=== PATIENT | female | born 1965 | race Caucasian/White ===

== ENCOUNTER → 2016-08-08 | Outpatient (CLI) | payer MEDICARE, MEDICAID ==
[~2016-08-08] MED LIST: ALBU1.25 NEB; ALBUAER3 INH; CHRO200T4 PO; CYCL1TAB29 PO; DEXI60CA PO; EFFE25TA PO; ESTE500T4 PO; FEXO1TAB97 PO; FLUT50SP EACH NARE; FURO20TA PO; KETO0.02 EACH EYE; LACT PO; LACTCAP8 PO; LANS15CA PO; LISI-519 PO; M2 M100C PO; MAGN100T2 PO; META0.52 PO; METH10TA PO; MILL5TAB PO; MISC-163; MONT10TA2 PO; MULTTAB67 PO; OMEG1000 PO; OXYC-395 PO; OYST250T4 PO; PAXI25TA5 PO; POTA8CAP PO; PROG100C PO; PROM25TA5 PO; SENN1TAB PO; SPIRCAP INH; TRAZ50TA12 PO; WALKER WHEELS/F1 MIS; XARE10TA PO
== END ==
LOC: CPRE 12:15
PROVIDERS: ATTEND Pain Medicine Interventional Pain Medicine
DX: Z45.49 Encounter for adjustment and management of other implanted nervous system device (principal)

== ENCOUNTER → 2016-08-15 | Day surgery (SDC) | payer MEDICARE, MEDICAID ==
[~2016-08-15] VITALS: Ht 158.8 cm; Wt 61.5 kg
[~2016-08-15] MED LIST changes: +BUPIVACAINE/EPINEPHRINE 0.5% PF 30 ML VIAL ONE; -CYCL1TAB29 PO; -EFFE25TA PO; +FAMOTIDINE 20 MG/2 ML VIAL ONE; -LACT PO; -LISI-519 PO; -META0.52 PO; +MIDAZOLAM HCL 2 MG/2 ML VIAL ONE; +PROPOFOL 200 MG/20 ML AMP IV ONE; -SENN1TAB PO; +SODIUM CHLOR 0.9% 250 ML INJ 250 ML ONE; +SODIUM CHLORIDE 0.9% INJ 100 ML ONE; +VANCOMYCIN 500 MG VIAL ONE; -XARE10TA PO
[2016-08-15 11:46] VITALS: BP 112/70; PULSE 90; RESP 16; TEMP 98.3; O2SAT 98
[2016-08-15 14:30] VITALS: PULSE 93
[2016-08-15 15:30] VITALS: TEMP 98
[2016-08-15 15:50] VITALS: BP 117/76; PULSE 84; RESP 14; O2SAT 98
--- NOTE | 2016-08-19 10:59 | MP ---
cc: [facility] DATE OF SURGERY 08/15/2016 DATE OF 1965 PROCEDURE 1. Removal of implanted pulse generator for spinal cord stimulation. 2. Removal of implanted electrodes for spinal cord stimulation. PREPROCEDURE DIAGNOSIS Diagnostic procedure requires removal of spinal cord stimulator. POSTPROCEDURE DIAGNOSIS Diagnostic procedure requires removal of spinal cord stimulator. PROCEDURE NOTE IV was started in the holding area. The patient was given IV antibiotics, taken to the operating room, placed in the right lateral decubitus position. All pressure points were checked and padded. She was sedated and monitored by Anesthesia. Her abdomen and back were prepped with Chloraprep and draped with sterile drapes and then the skin over the implanted pulse generator in the left abdominal area was infiltrated with 0.5% Marcaine containing epinephrine and then the area in the lumbar region was also infiltrated. Then an incision was made over the pulse generator and it removed from the subcutaneous pocket and then an incision was made in the lumbar area and the stimulating electrode and its anchoring device were removed intact. Then the distal extension wires were also pulled and removed from the left flank. Then the lumbar incision and the abdominal incision were closed using 3-0 Monocryl and subcuticular tissue and 3-0 nylon on the skin. The incisions were covered with sterile adhesive dressings and the patient was taken to the recovery room with stable vital signs, neurologically intact. W. MD ANA Murillo/CHRIS /2:29 PM /10:38 AM
== END | disposition home or self-care (01) ==
LOC: PHSDC 10:44
PROVIDERS: ATTEND Pain Medicine Interventional Pain Medicine
DX: Z45.49 Encounter for adjustment and management of other implanted nervous system device (principal); M54.5 Low back pain
CPT/HCPCS: 00300; 63661; 63688; J2250; J3010; J3370; J7050